=== PATIENT | female | born 1955 | race Caucasian/White ===

== ENCOUNTER 2018-08-06 09:38 | Day surgery (SDC) | payer MEDICAID ==
[2018-08-06 11:00] VITALS: BMI 22.6
[2018-08-06] MEDS ORDERED: Propofol 10 mg/ml Inj (20 ML) ONE (12:40)
[2018-08-06 14:32] VITALS: BP 137/89; PULSE 72; RESP 19; TEMP 97.8; O2SAT 99
== END 2018-08-06 14:30 | disposition home or self-care (01) ==
LOC: C.ENDO 09:38
PROVIDERS: ATTEND Internal Medicine Gastroenterology
DX: Z12.11 Encounter for screening for malignant neoplasm of colon (principal); D12.5 Benign neoplasm of sigmoid colon; K29.50 Unspecified chronic gastritis without bleeding; B96.81 Helicobacter pylori [H. pylori] as the cause of diseases classified elsewhere; K64.1 Second degree hemorrhoids; K21.0 Gastro-esophageal reflux disease with esophagitis; I10 Essential (primary) hypertension; E55.9 Vitamin D deficiency, unspecified
CPT/HCPCS: 43239; 45385; 88305; 88312; 88342; J2001; J2704